=== PATIENT | male | born 1985 | race Caucasian/White ===

== ENCOUNTER 2018-02-16 21:40 | Emergency (ER) | payer SELFPAY | END 2018-02-16 22:18 | disposition home or self-care (01) | LOC: EDSEX 21:40 → MADERS 21:40 | DX: M25.511 Pain in right shoulder (principal); X50.9XXA Other and unspecified overexertion or strenuous movements or postures, initial encounter | CPT/HCPCS: 99281 ==

== ENCOUNTER 2019-08-27 14:34 | Emergency (ER) | payer SELFPAY ==
[2019-08-27] MEDS ORDERED: Ibuprofen 800 MG TAB ONE (15:49)
--- NOTE | 2019-08-27 15:50 | RAD ---
XR Forearm Lt 2 View STANDARD INDICATION: Left forearm injury; abrasion to the anterior aspect of the left forearm FINDINGS: Bones: No acute fracture or subluxation is evident. Joints: No acute abnormality. Soft tissues: No radiopaque foreign body is evident. IMPRESSION: No acute osseous abnormality.
== END 2019-08-27 16:00 | disposition home or self-care (01) ==
LOC: MADERS 14:34
DX: S50.12XA Contusion of left forearm, initial encounter (principal); W19.XXXA Unspecified fall, initial encounter; F17.210 Nicotine dependence, cigarettes, uncomplicated